=== PATIENT | female | born 1985 | race Caucasian/White ===

== ENCOUNTER 2023-08-26 07:37 | Emergency (ER) | payer OTHER, MEDICAID ==
[2023-08-26] MEDS ORDERED: Orphenadrine 60 MG/2ML AMP IV ONE (10:54)
[2023-08-26] MEDS ORDERED: Morphine 4 MG/ML VIAL IV ONE (10:54)
[2023-08-26] MEDS ORDERED: Ketorolac 30 MG/ML VIAL IV ONE (10:54)
== END 2023-08-26 09:44 | disposition home or self-care (01) ==
LOC: ED 07:37
DX: S09.90XA Unspecified injury of head, initial encounter (principal); V89.2XXA Person injured in unspecified motor-vehicle accident, traffic, initial encounter
CPT/HCPCS: J1885; J2270; J2360